=== PATIENT | male | born 1970 | race Caucasian/White ===

== ENCOUNTER 2024-05-21 23:31 | Emergency (ER) | payer OTHER ==
[~2024-05-21] VITALS: Ht 157.5 cm; Wt 61.2 kg
[2024-05-22] MEDS ORDERED: ACETAMINOPHEN 325 MG TABLET ONE (00:26)
[2024-05-22] MEDS: ACETAMINOPHEN 325 MG TABLET PO ONE (00:27)
[2024-05-22 02:08] VITALS: BP 142/86; TEMP 98.1; O2SAT 98
== END 2024-05-22 02:08 | disposition home or self-care (01) ==
LOC: ER 23:40
DX: S13.4XXA Sprain of ligaments of cervical spine, initial encounter (principal); S09.90XA Unspecified injury of head, initial encounter; E11.9 Type 2 diabetes mellitus without complications; I10 Essential (primary) hypertension; W01.0XXA Fall on same level from slipping, tripping and stumbling without subsequent striking against object, initial encounter; Y93.89 Activity, other specified; Y92.89 Other specified places as the place of occurrence of the external cause; Y99.8 Other external cause status
CPT/HCPCS: 99284; 72125; 70450; L0172